=== PATIENT | female | born 1960 | race Caucasian/White ===

== ENCOUNTER 2021-06-20 11:02 | Emergency (ER) | payer OTHER, BC ==
[~2021-06-20] VITALS: Ht 154.9 cm; Wt 115.7 kg
== END 2021-06-20 13:39 | disposition home or self-care (01) ==
LOC: ED 11:02
DX: R07.89 Other chest pain (principal); V43.52XA Car driver injured in collision with other type car in traffic accident, initial encounter; Y93.89 Activity, other specified; Y92.89 Other specified places as the place of occurrence of the external cause; Y99.8 Other external cause status

== ENCOUNTER → 2025-05-09 | Outpatient (CLI) | payer MEDICARE ==
[2025-05-11 17:07] LABS: LUPUS DRVVT 41.0 sec (0.0-47.0); LUPUS REFLEX INTERPRETATION Comment: (.); PTT-LA 32.1 sec (0.0-43.5)
== END | disposition home or self-care (01) ==
LOC: LAB 11:22
PROVIDERS: ATTEND Family Medicine
DX: D68.9 Coagulation defect, unspecified (principal)